=== PATIENT | female | born 1995 | race Caucasian/White ===

== ENCOUNTER 2020-05-02 16:44 | Emergency (ER) | payer OTHER ==
[~2020-05-02] VITALS: Ht 167.6 cm; Wt 54.4 kg
[2020-05-02 17:13] LABS: URINE BILIRUBIN NEGATIVE (Negative); URINE BLOOD TRACE (Negative); URINE CLARITY CLEAR; URINE COLOR YELLOW; URINE GLUCOSE-RANDOM* NEGATIVE (Negative); URINE KETONES NEGATIVE (Negative); URINE NITRITE-REFLEX NEGATIVE (Negative); URINE PROTEIN (DIPSTICK) NEGATIVE (Negative); URINE UROBILINOGEN 0.2 E.U./dl (0.2-1.0)
[2020-05-02 17:14] LABS: URINE LEUKOCYTES-REFLEX 1+ (Negative)
[2020-05-02 17:24] LABS: BACTERIA-REFLEX >30 Many /HPF (None Seen); SQUAMOUS 4-10 Moderate /LPF (0-3)
[2020-05-02 17:25] LABS: URINE RBC 0-2 Rare /HPF (0-2)
[2020-05-02 17:26] LABS: CASTS None Seen /LPF (None Seen); CRYSTALS None Seen /LPF (None Seen); WBC CLUMPS Few (None Seen)
[2020-05-02] MEDS ORDERED: KEFLEX500 M1 PO (17:41)
[2020-05-02 18:44] VITALS: BP 112/51
== END 2020-05-02 18:44 | disposition home or self-care (01) ==
LOC: ER 16:44
PROVIDERS: Nurse Practitioner
DX: M25.532 Pain in left wrist (principal); M25.552 Pain in left hip; N39.0 Urinary tract infection, site not specified; W17.89XA Other fall from one level to another, initial encounter; Y93.89 Activity, other specified; Y92.89 Other specified places as the place of occurrence of the external cause; Y99.9 Unspecified external cause status